=== PATIENT | male | born 1990 | race Caucasian/White ===

== ENCOUNTER 2024-08-03 10:52 | Emergency (ER) | payer SELFPAY ==
[2024-08-03 10:58] VITALS: BP 138/99
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
== END 2024-08-03 14:59 | disposition home or self-care (01) ==
LOC: EMR 10:52
PROVIDERS: EMERGENCY PHYSICIAN Emergency Medicine
DX: R68.84 Jaw pain (principal); Z87.828 Personal history of other (healed) physical injury and trauma
CPT/HCPCS: 99283; 70330